=== PATIENT | female | born 1955 | race Caucasian/White ===

== ENCOUNTER 2016-06-20 10:09 | Day surgery (SDC) | payer BC ==
[2016-06-17 14:07] VITALS: BMI 24.9
[~2016-06-20 10:09] MED LIST: LACTATED RINGERS 1,000 ML IV SCH
[2016-06-20 10:38] VITALS: RESP 16; TEMP 97.7
[2016-06-20] MEDS ORDERED: LIDOCAINE 1% INJ 10MG/ML (20 ML MDV) ONE (11:21)
[2016-06-20] MEDS ORDERED: fentaNYL (PF) 50 MCG/ML 2 ML AMP ONE (11:21)
[2016-06-20] MEDS ORDERED: MIDAZOLAM 2 MG/2 ML VIAL ONE (11:21)
[2016-06-20] MEDS ORDERED: PROPOFOL 10 MG/ML 20 ML VIAL IV ONE (11:21)
--- NOTE | 2016-06-20 11:27 | P.GSHP ---
History of Present Illness H&P Date: 06/20/16 Chief Complaint: Screening colonoscopy This is a 60-year-old female who presents today for screening colonoscopy. Her last colonoscopy was 12 years ago. She denies a significant GI complaints. - Constitutional Constitutional: Reports as per HPI Past Medical History Past Medical History: Cancer Additional Past Medical History / Comment(s): BREAST CA, HX CHEMO History of Any Multi-Drug Resistant Organisms: None Reported Additional Past Surgical History / Comment(s): RT BREAST LUMPECTOMY, Past Anesthesia/Blood Transfusion Reactions: No Reported Reaction Past Psychological History: No Psychological Hx Reported Smoking Status: Never smoker Past Alcohol Use History: None Reported Past Drug Use History: None Reported - Past Family History Mother Family Medical History: Cancer Additional Family Medical History / Comment(s): COLON Father Family Medical History: Cancer Additional Family Medical History / Comment(s): LUNG Medications and Allergies Home Medications Medication Instructions Recorded Confirmed Type No Known Home Medications [No 06/17/16 06/20/16 History Known Home Medications] Allergies Allergy/AdvReac Type Severity Reaction Status Date / Time No Known Allergies Allergy Verified 06/20/16 10:44 Surgical - Exam Vital Signs Temp Pulse Resp BP Pulse Ox 97.7 F 83 16 116/70 99 06/20/16 10:38 06/20/16 10:38 06/20/16 10:38 06/20/16 10:38 06/20/16 10:38 - General well developed, no distress - Eyes PERRL - ENT normal pinna - Neck no masses - Respiratory normal expansion - Cardiovascular Rhythm: regular - Abdomen Abdomen: soft, non tender Assessment and Plan Plan: We'll perform screening colonoscopy.
--- NOTE | 2016-06-20 11:41 | P.OP ---
Date of Procedure: 06/20/16 Preoperative Diagnosis: Screening colonoscopy Postoperative Diagnosis: Diverticulosis Internal and external hemorrhoids Procedure(s) Performed: Colonoscopy Anesthesia: MAC Surgeon: Claudio Juarez Pathology: none sent Condition: stable Disposition: PACU Description of Procedure: The patient's placed on the endoscopy table lateral position. She received IV sedation. Digital rectal exam was performed which revealed internal/external hemorrhoids. The flexible colonoscope was then placed patient anus and passed throughout the entire colon. The ileocecal valve was visualized. Cecum, ascending and transverse colon appeared normal. In the descending; was mild diverticular changes. Scope was then brought back the rectum and this appeared normal. Scope was withdrawn for patient.
[2016-06-20 12:07] VITALS: BP 122/79; PULSE 73
== END 2016-06-20 15:38 | disposition home or self-care (01) ==
LOC: ORWHC2ENDO 10:09
PROVIDERS: ATTEND Surgery
DX: Z12.11 Encounter for screening for malignant neoplasm of colon (principal); K57.30 Diverticulosis of large intestine without perforation or abscess without bleeding; K64.8 Other hemorrhoids; K64.4 Residual hemorrhoidal skin tags; Z85.3 Personal history of malignant neoplasm of breast; Z92.21 Personal history of antineoplastic chemotherapy
CPT/HCPCS: J2250; J2001; J3010; J2704; G0121; 45378

== ENCOUNTER 2018-09-20 11:34 | Emergency (ER) | payer BC, MEDICARE ==
[2018-09-20 12:21] VITALS: BP 136/77; PULSE 76; RESP 18; TEMP 97.9
--- NOTE | 2018-09-20 12:39 | ED ---
Wound/Laceration HPI - General Chief Complaint: Wound/Laceration Stated Complaint: thumb lac Time Seen by Provider: 09/20/18 12:24 Source: patient, RN notes reviewed Mode of arrival: ambulatory Limitations: no limitations - History of Present Illness Initial Comments: 63-year-old female presents emergency Department chief complaint of right thumb laceration. Patient's tetanus is up-to-date. Patient states that she was putting away dishes and the inside of a food and beverage checker blade cut her thumb. She was sent from Dr. White's office for x-ray and closure. Patient denies any decreased range of motion, numbness or tingling. - Related Data Home Medications Medication Instructions Recorded Confirmed No Known Home Medications 06/17/16 06/20/16 Allergies Allergy/AdvReac Type Severity Reaction Status Date / Time No Known Allergies Allergy Verified 09/20/18 12:19 Review of Systems ROS Statement: Those systems with pertinent positive or pertinent negative responses have been documented in the HPI. ROS Other: All systems not noted in ROS Statement are negative. Past Medical History Past Medical History: Cancer Additional Past Medical History / Comment(s): BREAST CA, HX CHEMO History of Any Multi-Drug Resistant Organisms: None Reported Additional Past Surgical History / Comment(s): RT BREAST LUMPECTOMY, Past Anesthesia/Blood Transfusion Reactions: No Reported Reaction Past Psychological History: No Psychological Hx Reported Smoking Status: Never smoker Past Alcohol Use History: None Reported Past Drug Use History: None Reported - Past Family History Mother Family Medical History: Cancer Additional Family Medical History / Comment(s): COLON Father Family Medical History: Cancer Additional Family Medical History / Comment(s): LUNG General Exam Limitations: no limitations General appearance: alert, in no apparent distress Head exam: Present: atraumatic, normocephalic, normal inspection Respiratory exam: Present: normal lung sounds bilaterally. Absent: respiratory distress, wheezes, rales, rhonchi, stridor Cardiovascular Exam: Present: regular rate, normal rhythm, normal heart sounds. Absent: systolic murmur, diastolic murmur, rubs, gallop, clicks Extremities exam: Present: other (Right thumb there is a 1 cm laceration full range of motion neurovascular intact with cap refill less than 2 seconds no tendon involvement full-strength) Course Vital Signs 09/20/18 12:19 Temperature 97.9 F Pulse Rate 76 Respiratory 18 Rate Blood Pressure 136/77 O2 Sat by Pulse 99 Oximetry Procedures - Laceration Laceration #1 Consent Obtained: verbal consent Indication: laceration Site: hand (Right thumb) Size (cm): 1 Description: linear Depth: simple, single layer Pre-repair: wound explored, irrigated extensively, deep structures intact Type of Sutures: nylon Size of Sutures: 4-0 Number of Sutures: 1 Technique: simple, interrupted Patient Tolerated Procedure: well, no complications Medical Decision Making - Medical Decision Making 63-year-old female sent for right thumb laceration x-ray obtained negative 1 suture was placed with no complications return parameters discussed wound care was discussed Disposition Clinical Impression: Laceration of right thumb Disposition: HOME SELF-CARE Condition: Stable Instructions (If sedation given, give patient instructions): Care For Your Stitches (ED), Finger Laceration (ED) Additional Instructions: Have sutures removed in 7 days. Please return to the Emergency Department if symptoms worsen or any other concerns. Is patient prescribed a controlled substance at d/c from ED?: No Referrals: Prosper White MD [Primary Care Provider] - 1-2 days Time of Disposition: 13:34
--- NOTE | 2018-09-20 12:57 | XR ---
EXAMINATION TYPE: XR finger RT DATE OF EXAM: 09/20/2018 COMPARISON: NONE HISTORY: Pain TECHNIQUE: Three views are submitted. FINDINGS: The osseous structures are intact. There is arthropathy of the first MCP and there is no acute fractu re or dislocation. IMPRESSION: 1. No definite acute fracture or dislocation if symptoms persist, follow-up study in 7 to 10 days wo uld be suggested
== END 2018-09-20 13:40 | disposition home or self-care (01) ==
LOC: EC 11:34
DX: S61.011A Laceration without foreign body of right thumb without damage to nail, initial encounter (principal); Z87.891 Personal history of nicotine dependence; Z85.3 Personal history of malignant neoplasm of breast; Z92.21 Personal history of antineoplastic chemotherapy; W29.0XXA Contact with powered kitchen appliance, initial encounter; Y93.89 Activity, other specified
CPT/HCPCS: 12001; 99283